=== PATIENT | female | born 1945 | race Hispanic/Latino ===

== ENCOUNTER 2023-03-20 10:10 | Outpatient (CLI) | payer MEDICARE, OTHER | END 2023-03-20 10:11 | disposition home or self-care (01) | LOC: CSHMAMMO 10:10 | PROVIDERS: ATTEND Family Medicine | DX: Z12.31 Encounter for screening mammogram for malignant neoplasm of breast (principal); Z13.820 Encounter for screening for osteoporosis; Z78.0 Asymptomatic menopausal state | CPT/HCPCS: 77063; 77067; 77080 ==